=== PATIENT | male | born 1985 | race Caucasian/White ===

== ENCOUNTER 2016-07-09 17:52 | Emergency (ER) ==
[2016-07-09 17:59] VITALS: BP 147/86
[2016-07-09] MEDS ORDERED: NORCO-7.5 PO ONE (18:56)
[2016-07-09] MEDS ORDERED: PEN VK PO ONE (18:56)
--- NOTE | 2016-07-09 19:07 | PROVIDER DOCUMENTATION ---
HPI-EENT General - General Chief Complaint: Toothache Stated Complaint: ABSCESS GUM Time Seen by Provider: 07/09/16 18:51 Source: patient Allergies/Adverse Reactions: Patient Allergies Allergy/AdvReac Type Severity Reaction Status Date / Time promethazine HCl * Allergy Unknown Verified 07/09/16 17:59 [From Phenergan] - History of Present Illness-EENT General Nature of Presenting Problem: 31 yo M presents to the ER with complaint of right tooth pain and swelling x 2- 3 days. Pt has modern swelling on right side of face. EENT Location: reports: dental Quality of Pain: reports: aching Severity: reports: mild Onset/Duration: reports: 3 days ago Timing: reports: still present Associated Symptoms: reports: facial pain/swelling, tooth pain - Throat/Dental Throat/Dental Problem Symptoms: reports: toothache, swelling of jaw/face Review of Systems - Adult - REVIEW OF SYSTEMS - ADULT Constitutional: denies: chills, fever Eyes: reports: no symptoms reported Ears, Nose, Mouth & Throat: reports: mouth/dental pain, mouth swelling Cardiovascular: denies: chest pain, palpitations Respiratory: denies: cough, shortness of breath Gastrointestinal: reports: no symptoms reported Genitourinary: reports: no symptoms reported Musculoskeletal: reports: no symptoms reported Integumentary: reports: no symptoms reported Neurological: reports: no symptoms reported Psychiatric: reports: no symptoms reported Endocrine: reports: no symptoms reported Hematologic/Lymphatic: reports: no symptoms reported Allergic/Immunologic: reports: no symptoms reported All Other Systems: Reviewed and Negative Past History - Adult - PAST MEDICAL HISTORY-ADULT Review of Records: reports: Old Records Reviewed, Nursing Assessment Review, Medications Reviewed Major Childhood Illnesses: reports: denies history Cardiovascular: reports: denies history Respiratory: reports: denies history Gastrointestinal: reports: denies history Obstetrical/Gynecological: reports: denies history Genitourinary: reports: denies history Musculoskeletal: reports: denies history Neurological: reports: denies history Endocrine/Immune: reports: denies history Other Conditions: reports: denies history - IMMUNIZATION STATUS Childhood Immunizations: See Nurse Assessment Flu Vaccine: See Nurse Assessment - FAMILY HISTORY Family History: reviewed, not pertinent Physical Exam- EENT - Physical Exam EENT Initial Vital Signs Reviewed: Yes General Appearance: appears well, alert Throat Exam: dental tenderness. negative: foreign body Neck: non-tender, full range of motion Respiratory: chest non-tender, lungs clear Abdominal Exam: normal bowel sounds, non tender Lymphatic: no adenopathy Extremity: normal range of motion, non-tender Integumentary: normal color, normal turgor Progress - PLAN OF CARE/RESULTS Progress/Plan/Lab Results: Orders Category Date Time Status Hydrocodone/APAP 7.5 mg/325 mg [Aurora-7.5] Med 07/09/16 18:56 Discontinued 1 each PO NOW ONE Penicillin V Potassium [Pen Vk] Med 07/09/16 18:56 Discontinued 500 mg PO NOW ONE Vital Signs Temp Pulse Resp BP Pulse Ox 07/09/16 17:55 97.9 F 118 H 18 147/86 98 promethazine HCl * [From Phenergan] Allergy (Verified 07/09/16 17:59) Unknown Meloxicam [Mobic] 15 mg PO DAILY PRN #10 tablet 01/18/16 Hydrocodone/Acetaminophen [Aurora 7.5-325 Tablet] 1 each PO Q4-6H PRN PRN #20 tablet 07/09/16 Penicillin V Potassium [Pen Vk] 500 mg PO Q6HR #80 tablet 07/09/16 Departure - Departure Time of Disposition Order: 19:03 DIAGNOSIS: Dental abscess Disposition: HOME 01 Certified Medical Emergency: Emergent Condition: Good Additional Instructions: ED Follow Up Instructions: You have been treated by a care provider in the Emergency Department. These instructions are being provided to you so you can have an understanding of how to care for yourself upon discharge. Upon discharge from the Emergency Department, you are responsible for making arrangements for follow-up care by a physician of your choice. Take all prescribed medications as directed. Return to the Emergency Department immediately for any new or worsening symptoms. You may call the Physician Referral phone number at [phone] to obtain a list of Physicians who are taking new patients. Prescriptions: Hydrocodone/Acetaminophen [Aurora 7.5-325 Tablet] 1 each PO Q4-6H PRN PRN #20 tablet PRN Reason: Pain Penicillin V Potassium [Pen Vk] 500 mg PO Q6HR #80 tablet Referrals: None,PCP [Primary Care Provider] - Toni Negro MD [STAFF PHYSICIAN] - Forms: Return to School/Parent Work Instructions: Acetaminophen; Hydrocodone tablets or capsules, Penicillin V tablets, Dental Pain, Dental Abscess Attestation - Scribe Verification/Attestation Scribe:: Alexis Boyer Acting as Scribe for:: Arvind Blackburn Scribe documention review:: This chart was documented by a scribe and accurately reflects the service the provider performed and the decisions made by the provider.
== END 2016-07-09 19:07 | disposition home or self-care (01) ==
LOC: P.ED 17:52
DX: K04.7 Periapical abscess without sinus (principal); K08.89 Other specified disorders of teeth and supporting structures; R22.0 Localized swelling, mass and lump, head
CPT/HCPCS: 99282